=== PATIENT | male | born 1930 | race Caucasian/White ===

== ENCOUNTER 2016-10-07 08:55 | Emergency (ER) | payer OTHER, MEDICARE ==
--- NOTE | 2016-10-07 10:33 | DIAGNOSTIC IMAGING REPORT ---
PROCEDURE: XR CHEST 2 VIEW INDICATION: CHEST PAIN TECHNIQUE: PA and lateral views. COMPARISON: None. FINDINGS: Median sternotomy and CABG. Heart size and pulmonary vascularity are normal. Mild widening of the superior mediastinum which is stable and most consistent with normal vascular structures. Lungs are clear. Normal bony thorax. IMPRESSION: 1. No acute changes 2. CABG
--- NOTE | 2016-10-07 13:33 | ED CLINICAL REPORT ---
Clinical Report - Physicians/Mid Levels [facility] [address] [place] [address] 10/07/2016 8:57 Patient: ERICK MCMANUS Time Seen: 0901; initial patient contact. Arrived- By private vehicle. Historian- patient. HISTORY OF PRESENT ILLNESS Chief Complaint: CHEST DISCOMFORT. This started yesterday and is still present (no change). It was abrupt in onset and has been intermittent but is not gone now. It is described as pressure. No radiation. No nausea, vomiting, difficulty breathing or diaphoresis. (struggling with depression. has had a similar episode here in 2014. states that he had to go up on his antidepressant a few days ago. reports he is very sensitive to medications and were trying to avoid new meds. has extensive cardiac history. last stress test was > 2 years ago. last cardiac procedure was > 5 years ago. no leg swelling, coughing up blood, recent surgeries, or immobilizations. See's doctor Carlos for cardiology.). No additional chest pain. Similar symptoms previously: (a few times). Recent medical care: Not recently seen/assessed. REVIEW OF SYSTEMS All systems otherwise negative, except as recorded above. PAST HISTORY See nurses notes. Denies the following risk factors for DVT/PE - history of DVT and pulmonary embolism, recent surgery, recent [place] and congestive heart failure. Denies the following risk factors for DVT/PE - cancer, clotting disorder, estrogens, immobility and vena cava filter. SOCIAL HISTORY Former smoker. No alcohol use or drug use. No recent travel. Is a local resident. ADDITIONAL NOTES The nursing notes have been reviewed. PHYSICAL EXAM Vital Signs: 10/07/2016 08:58 BP: 149/76. HR: 72. RR: 14. O2 saturation: 96%. Temp: 97.5 F. Pain level now: 8/10. Hypertensive. Oxygen saturation normal. Appearance: Alert. Oriented X3. No acute distress. Eyes: Pupils equal, round and reactive to light. Eyes normal inspection. ENT: Ears normal. Nose normal. Pharynx normal. Neck: Normal inspection. Neck supple. No JVD. CVS: Normal heart rate and rhythm. Heart sounds normal. Pulses normal. No decreased pulses. Respiratory: No respiratory distress. Breath sounds normal. Chest nontender. No rales, rhonchi or wheezes. Abdomen: Soft and nontender. Bowel sounds normal. No mass. Back: Normal external inspection. Skin: Skin warm and dry. Normal skin color. No rash. Normal skin turgor. Extremities: Extremities exhibit normal ROM. No lower extremity edema. LABS, X-RAYS, AND EKG EKG: No acute ischemia. Rate: 75. Normal P waves. First-degree atrioventricular block (JEANNE = 204). Normal QRS complex. Poor R wave progression. Normal QT and QTc. Non-specific T wave inversion in lead V1 and V2. No ST elevation or depression. The study has been interpreted contemporaneously by me. The study has been independently viewed by me. The EKG appears to be a good tracing. Chest X-ray: (PROCEDURE: XR CHEST 2 VIEW INDICATION: CHEST PAIN TECHNIQUE: PA and lateral views. COMPARISON: None. FINDINGS: Median sternotomy and CABG. Heart size and pulmonary vascularity are normal. Mild widening of the superior mediastinum which is stable and most consistent with normal vascular structures. Lungs are clear. Normal bony thorax. IMPRESSION: 1. No acute changes 2. CABG). Views: PA and lateral. The X-rays were independently viewed by me and interpreted by the radiologist. The X-rays were discussed with the radiologist (via pacs). Laboratory Tests: CBC w Diff: (CATA: 10/07/2016 09:00) ( MsgRcvd 10/07/2016 09:15) Final results Test Result Flag Units (Reference) WHITE BLOOD COUNT 7.9 K/uL (4.5-11.5) RED BLOOD COUNT 5.04 M/uL (4.50-5.90) HEMOGLOBIN 16.2 gm/dL (13.5-17.5) HEMATOCRIT 47.9 % (41.0-53.0) MEAN CELL VOLUME 95 fL (80-100) MEAN CORPUSCULAR HGB 32 pg (26-34) MEAN CORPUSCULAR HGB CONC 34 g/dL (31-37) RED CELL DISTRIBUTION WIDTH 14.0 % (11.6-14.8) PLATELET COUNT 162 K/uL (150-400) NEUTROPHIL % 50.0 % (50-75) LYMPH % 39.9 % (25-40) MONO % 8.1 % (3-14) EOSINOPHIL % 1.4 % (0-4) BASOPHIL % 0.6 % (0-2) PT with INR: (CATA: 10/07/2016 09:00) ( [facility] 10/07/2016 09:55) Final results Test Result Flag Units (Reference) INR 1.0 (0.8-1.2) Low Intensity Therapy: INR 1.5-2.0 PT range 18.5-23.1Mod.Intensity Therapy: INR 2.0-3.0 PT range 23.1-31.5High Intensity Therapy: INR 2.5-3.5 PT range 27.4-35.5High Intensity Therapy 2: INR 3.0-4.0 PT range 31.5-39.3 D-DIMER QUANTITATIVE 0.44 ug/mLFEU (0.27-0.52) The primary value of this quantitative assay relates toits negative predictive value (i.e. exclusion) of pulmonaryembolism/deep vein thrombosis/DIC.Elevated levels of d-dimer may also occur with:, age, cancer, inflammation, liver disease,post-op, infection, hematoma, coronary disease, peripheralarteriopathy, bleeding disorders and thrombolytic treatment.Results should be correlated with other clinical andradiological data.Testing Methodology: Latex Immunoassay Troponin-I: (CATA: 10/07/2016 11:05) ( [facility] 10/07/2016 11:52) Final results Test Result Flag Units (Reference) TROPONIN I 0.06 ng/mL (0.00-1.5) TROPONIN REFERENCE RANGE:<0.1 NEGATIVE0.1-1.5 INDETERMINANT>1.5 POSITIVE BNP: (CATA: 10/07/2016 09:00) ( [facility] 10/07/2016 09:37) Final results Test Result Flag Units (Reference) B-TYPE NATRIURETIC PEPTIDE 77.9 pg/ml (5-100) CMP: (CATA: 10/07/2016 09:00) ( MsgRcvd 10/07/2016 09:29) Final results Test Result Flag Units (Reference) GLUCOSE 106 mg/dL (70-110) BUN 19 H mg/dL (7-18) CREATININE 1.4 H mg/dL (0.6-1.3) Estimated GFR 51.19 mL/min Estimated GFR- >60 mL/min Note: Persistent reduction over 3 months in eGFR<60 mL/min/1.73 m2 defines CKD. Patients with eGFR values>=60 mL/min/1.73 m2 may also have CKD if evidence ofpersistent proteinuria. Additional information may be foundat www.kidney.org. SODIUM 142 mmol/L (136-145) POTASSIUM 4.1 mmol/L (3.5-5.1) CHLORIDE 104 mmol/L (98-107) CARBON DIOXIDE 26 mmol/L (21-32) CALCIUM 8.6 mg/dL (8.5-10.1) TOTAL PROTEIN 7.9 g/dL (6.4-8.2) ALBUMIN 3.6 g/dL (3.3-5.0) BILIRUBIN, TOTAL 0.6 mg/dL (0.0-1.0) ALKALINE PHOSPHATASE 61 U/L (46-116) AST (SGOT) 33 U/L (15-37) ALT (SGPT) 38 U/L (12-78) TROPONIN I <0.05 ng/mL (0.00-1.5) TROPONIN REFERENCE RANGE:<0.1 NEGATIVE0.1-1.5 INDETERMINANT>1.5 POSITIVE . PROGRESS AND PROCEDURES Course of Care: The patient is a pleasant 86-year-old male reasoning for evaluation of chest discomfort. Patient has a extensive cardiac history. Recent stress test has been greater than 2 years ago. Patient will be evaluated with laboratory studies including chest x-ray and EKG. Patient is resting in bed in no acute distress. Patient appears nontoxic. Differential also includes acute myocardial infarction, pulmonary embolism, pneumonia, or depression given the patient's has this problem in the past before and had recently increased his medications recently. Patient is accompanied by his per patient request. There are agreeable to the treatment plan. because of the patient's chest pain, nitroglycerin was given. states that the patient has been really sensitive to the nitroglycerin in the past. Half a tablet of the sublingual nitroglycerin was given instead of a full dose of 0.4 mg. Patient was monitored. Patient had episode of bradycardia and hypotension. Patient was placed in Trendelenburg and given 500 cc bolus of fluid. Atropine has been ordered however patient's blood pressure and bradycardia normalize prior to administration of atropine. Patient had episode of nausea and vomiting during this episode. No other acute abnormalities noted. Patient has returned to baseline. Total episode lasted approximately 10-15 minutes. Nitroglycerin was placed on the patient's allergy list. Patient and were encouraged to inform future providers extreme caution with nitroglycerin in the future. the patient's workup was noted for the findings above. Discussed the laboratory results with cardiology. recommended patient follow-up as an outpatient and schedule a stress test for further cardiac evaluation. Patient has had resolution of his pain while here in the emergency department. Because of the patient is pain free with normal troponins 2, D-dimer normal. Do not feel the patient is having an acute myocardial infarction. 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 Prior to patient's departure from the emergency department his reevaluation is noted to be unremarkable. Do not feel patient has acute myocardial infarction, pulmonary embolism, or thoracic AA. I discussed with the patient is workup here in the emergency department including diagnosis, home care, follow-up, and return precautions. All questions have been answered. The patient expressed understanding of these instructions and was agreeable to them. Consult obtained from cardiology. Dr. Hartman. Disposition: Discharged. Condition: good. CLINICAL IMPRESSION Chest pain characterized as "discomfort" .12 lead EKG performed. (acute). 10/07/2016 12:00 BP: 108/64. HR: 59. RR: 19. O2 saturation: 96%. Temp: 97.8 F. Pain level now: 0/10. Adjustment disorder with depressed mood. Blood pressure normal. Oxygen saturation normal. INSTRUCTIONS Warnings: GENERAL WARNINGS: Return or contact your physician immediately if your condition worsens or changes unexpectedly, if not improving as expected, or if other problems arise. SPECIFICALLY, return if you develop chest, neck, jaw, shoulder, arm, or back pain, difficulty breathing, a fluttering sensation in your chest, lightheadedness, fainting, excessive fatigue, or sudden sweating. Your Current Medications: CONTINUE TAKING THE FOLLOWING MEDICATIONS: ASA : 81 mg daily. Flomax Oral. Glucoma eye drops*. Lisinopril Oral : 5 mg daily. Lovastatin Oral : 20mg daily. Multaq Oral : Tablet 400 mg, 1/2 tablet BID. Multivitamins Oral. Omeprazole Oral : 20 mg daily. Prozac Oral : 20 mg daily, has been off this for 2 months "I dodn't think I needed it any more". Vitamin D 1 tablet daily *. Follow-up: Return to the emergency department as needed. Follow up with your doctor in three days. Reason for referral: recheck today's concerns. Screening today revealed the patient's blood pressure to be in the normal range. The patient should follow up with a primary care provider for blood pressure management. Understanding of the discharge instructions verbalized by patient and family. Discharge instructions reviewed (spouse). Follow-up with: Sera Vasquez MD, Cardiology, , [facility] [id number] [place] [address] [address], [place], [address] Follow up. Reason for referral: recheck today's concerns of chest pain. the office will call you today or tomorrow. contact them if they do not get back to you. . Summary of care provided to patient via paper. (Electronically signed by Aaron Rascon Dr. 10/10/2016 5:01)
--- NOTE | 2016-10-07 13:34 | ED ORDER SUMMARY ---
..... Patient: ERICK MCMANUS OrderSheet [facility] VisitID: [id number] [address] [place] [address] 86y, M Registration Date/Time: 10/07/2016 ORDER SHEET Weight: 81.6 kg Allergies: Lasix, Plavix, Vicodin, Nitroglycerin GENERAL ORDERS: Chest 2V Urgent (09:02 10/07/2016 Luna Cannon) (Ack 9:05 KHoerner) (9:23 KHoerner) Electromechanic (Continuous) (CP) (09:02 10/07/2016 Luna Cannon) (9:07 Judy R.NMilena) CBC w Diff Urgent (09:03 10/07/2016 Luna Cannon) (9:05 KHoerner) CMP Urgent (09:03 10/07/2016 Luna Cannon) (9:05 KHoerner) UA-Culture if indicated Urgent (09:03 10/07/2016 Luna Cannon) (9:05 KHoerner) PT with INR Urgent (09:03 10/07/2016 Luna Cannon) (9:05 KHoerner) D-Dimer Urgent (09:03 10/07/2016 Luna Cannon) (9:05 KHoerner) Troponin-I Urgent (09:03 10/07/2016 Luna Cannon) (9:05 KHoerner) BNP Urgent (09:03 10/07/2016 Luna Cannon) (9:05 KHoerner) Pulse oximeter (09:03 10/07/2016 Luna Cannon) (9:07 Judy R.NMilena) EKG - ER Stat (11:13 10/07/2016 Glynn R.NMilena per protocol) (11:14 Garo) Troponin-I Urgent (11:14 10/07/2016 Glynn R.N. per protocol) (11:16 DANIELLEoerner) MEDICATION ORDERS: NitroGLYCERIN SL 0.2 mg (PO once now) (09:30 10/07/2016 Luna Cannon) (9:46 Ron R.N.) IV FLUIDS: IV Saline Lock (09:03 10/07/2016 Luna Cannon) (Ack 9:46 Ron R.N.) (14:20 Glynn R.N.) Zofran IV 4 mg (NOW) (09:37 10/07/2016 Luna Cannon) (9:41 LWamy R.N.) IV NS : initial bolus 500 mL (1000 mL/hr), then none - for X1 (NOW) (10:10/07/2016 Luna Cannon) (10:18 Glynn Peralta.N.) Atropine IV 0.25 mg (once now) (10:10/07/2016 Luna Cannon) (Hold 10:32 Glynn R.NMilena) ORDER SHEET NOTES: [Electronically signed by Tiffany Mccollum R.N. (14:10/07/2016)] [Electronically signed by Aaron Rascon Dr. (05:01 10/10/2016)] [Electronically locked/signed by Tiffany Mccollum R.N. (14:10/07/2016)]
--- NOTE | 2016-10-07 13:34 | ED NURSING NOTES ---
Clinical Report - Nurses [facility] [address] [place] [address] 10/07/2016 8:57 Patient: ERICK MCMANUS TRIAGE Triage time 0855 AM. Acuity: LEVEL 2. Chief Complaint: CHEST PAIN. Alert. No acute distress. --09:08 Tiffany Mccollum R.N. 08:58 10/07/16. BP: 149/76. HR: 72. RR: 14. O2 saturation: 96% on room air. Temp: 97.5 F (oral). Pain level now: 01/20. --09:08 Tiffany Mccollum R.N. Weight: 81.6 kg. Height/Length: 66 inches. BMI: 29. --08:58 Tiffany Mccollum R.N. Medications ASA 81 mg, daily. Lisinopril Oral 5 mg, daily. Lovastatin Oral 20mg, daily. Multaq Oral (Tablet 400 mg) 1/2 tablet, BID. Omeprazole Oral 20 mg, daily. Prozac Oral 20 mg, daily (has been off this for 2 months "I dodn't think I needed it any more" ). Vitamin D 1 tablet daily . --09:02 Tiffany Mccollum R.N. Flomax Oral. --09:06 Tiffany Mccollum R.N. Multivitamins Oral. --09:07 Tiffany Mccollum R.N. Glucoma eye drops. --09:07 Tiffany Mccollum R.N. The following entry was struck by Tiffany Mccollum R.N., 09:06 (10/07/16) Reason - other. <<STRICKEN ENTRY-- fish oil 1 tab daily . --09:02 Tiffany Mccollum R.N. --END STRIKE>>. Allergies Lasix.(itching, rash) Plavix. Definite Moderate(itching, rash) Vicodin. --09:02 Tiffany Mccollum R.N. Nitroglycerin. Definite Severe --10:44 Tiffany Mccollum R.N. Medication/allergy information source: the patient. --09:08 Tiffany Mccollum R.N. History Arrived by private vehicle. Historian: patient. Accompanied by family. Primary physician (Dr. Duffy- Michell perez). ( Pt states that yesterday evening experienced "chest discomfort" called the doctors office and was told to come to the ED this morning since the pain "discomfort and heaviness continues" Here for evaluation). This started today. He has had difficulty breathing. No sweating episodes, nausea, vomiting, fever or cough. 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 PAST MEDICAL HX: Immunizations: up-to-date. SOCIAL HX: Former smoker, end date 1966. No alcohol use or drug use. No infectious disease exposure. ABUSE ASSESSMENT: No report of abuse. SELF HARM ASSESSMENT: A self harm assessment was performed. The patient answered "no" to the question "Do you have thoughts of harming or killing yourself?" and "Have you recently had thoughts about harming or killing others?". FALL RISK ASSESSMENT: Fall risk assessment completed. No fall risk identified. NUTRITIONAL RISK ASSESSMENT: The nutritional risk assessment revealed no deficiencies. FUNCTIONAL ASSESSMENT: Functional assessment: no impairments noted. LEARNING NEEDS ASSESSMENT: The learning needs assessment revealed no barriers. SKIN INTEGRITY ASSESSMENT: Skin integrity risk assessment completed. No skin integrity risk identified. --09:08 Tiffany Mccollum R.N. Primary physician (Dr. Beltran- [employer]). --09:10 Tiffany Mccollum R.N. PROBLEMS: Arrhythmia. Anxiety Reaction. Chest Pain. Gastroesophageal Reflux. Hyperlipidemia. Hypertension. Immunizations. Prostate Cancer. Heart Disease. Benign Prostatic Hypertrophy. UTI - Urinary Tract Infection. --09:02 Tiffany Mccollum R.N. ADDITIONAL SURGERIES: Appendectomy. Colostomy. Coronary Artery Bypass Graft. Hernia Repair. Stent. --09:02 Tiffany Mccollum R.N. Interventions ID band on patient. --09:08 Tiffany Mccollum R.N. PHYSICAL ASSESSMENT To room via stretcher. GENERAL / NEURO / PSYCH: Alert. Oriented X 4. Appears in no acute distress. HEENT: Mucous membranes are pink. RESPIRATORY: Respirations not labored. Chest nontender. Breath sounds within normal limits. CVS: Normal sinus rhythm noted. Pulses within normal limits. Capillary refill less than 2 seconds. GI / : Abdomen soft and nontender. EXTREMITIES: No lower extremity edema. SKIN: Skin is warm and dry. Normal skin turgor. --09:08 Tiffany Mccollum R.N. NURSING PROGRESS NOTES The initial plan of care for this patient has been created This plan of care was discussed with the patient. school lunch monitor, pulse oximeter and NIBP monitor placed on patient. EKG time: (0905 AM). EKG was performed by a tech and shown to the ED physician. Patient ID band checked for patient name and birthdate: patient confirmed. Blood samples drawn from the left forearm by nurse per protocol ; labeled in presence of the patient and sent to lab: rainbow set. Patient gowned. Reassurance given. Two patient identifiers checked. Call light placed in reach. Side rails up. Bed placed in lowest position. Brakes of bed on. --09:09 Tiffany Mccollum R.N. 09:16 10/07/2016 Site #1 started via IV in the left forearm with an 20g angiocath, with aseptic technique and good blood return; one attempt. Blood drawn: rainbow set. Labeled in the presence of the patient and sent to the lab. Saline lock flushed with 10 mL saline. --09:41 Beth Díaz R.N. 09:41 10/07/2016 Zofran (Ondansetron HCl) IVP 4 mg given over 1 minute(s) via site #1. Allergies verified and confirmed 5 rights. IV patency established. IV site checked: no pain, redness, or swelling. IV flushed thoroughly pre- and post-medication administration. --09:41 Beth Díaz R.N. 09:46 10/07/2016 Nitroglycerin SL Tablets 0.2 mg given. Allergies verified and confirmed 5 rights. --09:46 Beth Díaz R.N. 09:47 10/07/16. BP: 107/64. HR: 69. RR: 14. O2 saturation: 94%. --09:47 Beth Díaz R.N. EKG time: (9:06 AM). EKG was performed by a tech and shown to the ED physician. --09:58 Rea Lua 10:18 10/07/2016 Started bag #1 500 mL IV Fluids IV NS (Saline); at 500 mL/hr over 1 hour(s) via site #1 via IV pump. Allergies verified and confirmed 5 rights. IV patency established. IV site checked: no pain, redness, or swelling. IV flushed thoroughly pre- and post-medication administration. --10:18 Tiffany Mccollum R.N. late entry - 09:30 AM. Cardiac rhythm: normal sinus rhythm. Oxygen administered by nasal cannula at 2 liters. school lunch monitor, pulse oximeter and NIBP monitor placed on patient. Reassurance given. CVS: The patient reports chest pain. --10:21 Tiffany Mccollum R.N. 09:30 10/07/16. BP: 107/64 (regular adult cuff) taken on the right arm, via an automated monitor, while lying. HR: 67. RR: 15. O2 saturation: 98% on room air. Pain level now: 10/20. --10:21 Tiffany Mccollum R.N. Cardiac rhythm: normal sinus rhythm. ( Monitored traced BP 60's pt pale, vomiting, MD Rodriguez at bedside and aware post Nitro administration. Bolus of NS given, atropine at bedside, now HR 63 BP 93/61. Will monitor). --10: Tiffany Mccollum R.N. 10:00 10/07/16. BP: 60/38 (regular adult cuff) taken on the right arm, via an automated monitor, while lying. HR: 42. RR: 12 (regular). O2 saturation: 97% on nasal cannula at 2 liters/minute. Pain level now: 09/20. --10:27 Tiffany Mccollum R.N. Cardiac rhythm: normal sinus rhythm. The patient is calm. ( Adverse reaction to Nitro noted on notes, Pt vomited x2, now "feeling better" BP at 97/56). --10:29 Tiffany Mccollum R.N. 10:27 10/07/16. BP: 93/61 taken on the left arm, via an automated monitor, while lying. HR: 61. RR: 14. O2 saturation: 96% on nasal cannula at 2 liters/minute. Pain level now: 09/20. --10:29 Tiffany Mccollum R.N. Cardiac rhythm: sinus bradycardia. Oxygen administered by nasal cannula at 2 liters. Monitoring of patient in place. Reassurance given. Overall patient status is improved- he states feels better. ( Pt still complaining of "chest discomfort" labs wnl, will repeat troponin, family at bedside and aware. Will monitor). HEENT: Denies headache. RESPIRATORY: Denies difficulty breathing. GI / : Denies nausea. Call light placed in reach. Side rails up x 1. Bed placed in lowest position. --10:31 Tiffany Mccollum R.N. 10:29 10/07/16. BP: 97/56 (regular adult cuff) taken on the left arm, via an automated monitor, while lying. HR: 60. RR: 12. O2 saturation: 95% on nasal cannula at 2 liters/minute. Pain level now: 09/20. --10:31 Tiffany Mccollum R.N. Cardiac rhythm: sinus bradycardia. Oxygen discontinued due to patient improvement. school lunch monitor, pulse oximeter and NIBP monitor placed on patient. Reassurance given. The patient is calm and resting quietly. GENERAL / NEURO / PSYCH: Denies anxiety. HEENT: Denies headache. RESPIRATORY: Denies difficulty breathing. CVS: Denies chest pain. Normal sinus rhythm noted. GI / : Denies nausea. --12:24 Tiffany Mccollum R.N. 12:00 10/07/16. BP: 108/64. HR: 59. RR: 19. O2 saturation: 96%. Temp: 97.8 F. Pain level now: . --12:24 Tiffany Mccollum R.N. DISPOSITION / DISCHARGE 10:15 10/07/2016 Nitroglycerin SL Response. Adverse reactions reported and observed including diaphoresis. (Pt BP downt o 60's and Bradycardia at 41. Symptomatic). --14:14 Tiffany Mccollum R.N. 11:00 10/07/2016 IV Fluids IV NS Response: no adverse reaction symptoms have improved the patient feels better. --14:13 Tiffany Mccollum R.N. 13:45 10/07/16. BP: 120/68. HR: 65. RR: 14. O2 saturation: 100% on room air. Temp: 98.3 F (oral). Pain level now: 0/10. --14:19 Tiffany Mccollum R.N. Cardiac rhythm: normal sinus rhythm. Departure time: 1350 PM. Condition at departure: improved and stable. The goals identified in the patient's plan of care were met. No learning barriers present. Discharge instructions provided and reviewed with the patient. Patient verbalized understanding. Written instructions provided in Sammar[place]. 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 No warning instructions, medication instructions, treatment instructions or referrals given to the patient. The patient was discharged by the physician. He was discharged home and accompanied by spouse. He left the Emergency Department ambulatory and via private vehicle. Spouse driving. FALL RISK ASSESSMENT: Fall risk assessment completed. No fall risk identified. --14:19 Tiffany Mccollum R.N. 11:10 10/07/2016 IV Fluids IV NS Discontinued: bag #1 infused. Total amount infused: 500 mL. IV patency established. IV site checked: no pain, redness, or swelling. IV flushed thoroughly. --14:20 Tiffany Mccollum R.N. 13:45 10/07/2016 Site #1 removed upon discharge. Catheter intact. Manual pressure, pressure dressing, bandaid and bandage applied. --14:21 Tiffany Mccollum R.N. Locked/Released at 10/07/2016 14:21 by Tiffany Mccollum R.N.
--- NOTE | 2016-10-07 13:34 | ED ORDER SUMMARY ---
..... Patient: ERICK MCMANUS OrderSheet [facility] VisitID: [id number] [address] [place] [address] 86y, M Registration Date/Time: 10/07/2016 ORDER SHEET Weight: 81.6 kg Allergies: Lasix, Plavix, Vicodin, Nitroglycerin GENERAL ORDERS: Chest 2V Urgent (09:02 10/07/2016 Luna Cannon) (Ack 9:05 KHoerner) (9:23 KHoerner) Card Player (Continuous) (CP) (09:02 10/07/2016 Luna Cannon) (9:07 Judy R.NMilena) CBC w Diff Urgent (09:03 10/07/2016 Luna Cannon) (9:05 KHoerner) CMP Urgent (09:03 10/07/2016 Luna Cannon) (9:05 KHoerner) UA-Culture if indicated Urgent (09:03 10/07/2016 Luna Cannon) (9:05 KHoerner) PT with INR Urgent (09:03 10/07/2016 Luna Cannon) (9:05 KHoerner) D-Dimer Urgent (09:03 10/07/2016 Luna Cannon) (9:05 KHoerner) Troponin-I Urgent (09:03 10/07/2016 Luna Cannon) (9:05 KHoerner) BNP Urgent (09:03 10/07/2016 Luna Cannon) (9:05 KHoerner) Pulse oximeter (09:03 10/07/2016 Luna Cannon) (9:07 Judy R.NMilena) EKG - ER Stat (11:13 10/07/2016 Glynn R.NMilena per protocol) (11:14 Garo) Troponin-I Urgent (11:14 10/07/2016 Glynn R.N. per protocol) (11:16 DANIELLEoerner) MEDICATION ORDERS: NitroGLYCERIN SL 0.2 mg (PO once now) (09:30 10/07/2016 Luna Cannon) (9:46 Ron R.N.) IV FLUIDS: IV Saline Lock (09:03 10/07/2016 Luna Cannon) (Ack 9:46 Ron R.N.) (14:20 Glynn R.N.) Zofran IV 4 mg (NOW) (09:37 10/07/2016 Luna Cannon) (9:41 LWamy R.N.) IV NS : initial bolus 500 mL (1000 mL/hr), then none - for X1 (NOW) (10:10/07/2016 Luna Cannon) (10:18 Glynn Peralta.N.) Atropine IV 0.25 mg (once now) (10:10/07/2016 Luna Cannon) (Hold 10:32 Glynn R.NMilena) ORDER SHEET NOTES: [Electronically signed by Tiffany Mccollum R.N. (14:10/07/2016)] [Electronically signed by Aaron Rascon Dr. (05:01 10/10/2016)] [Electronically locked/signed by Tiffany Mccollum R.N. (14:10/07/2016)]
--- NOTE | 2016-10-10 05:01 | ED MAR SUMMARY ---
..... Medication Administration Record [facility] [address] [place] [address] Patient: ERICK MCMANUS Visit ID: [id number] 86y, M Weight: 81.6 kg Height/Length: 66 in BMI: 29 ALLERGIES: Lasix, Plavix, Vicodin, Nitroglycerin Given 09:41 10/07/2016 Beth Díaz R.N. Medication Administered: ZOFRAN [IVP] (ONDANSETRON HCL), Dose: 4 mg IVP over 1 minute(s), Site: #1 left forearm. Medication Ordered: Zofran IV 4 mg (NOW). Given 09:46 10/07/2016 Beth Díaz R.N. Medication Administered: NITROGLYCERIN [SL], Dose: 0.2 mg Tablets SL. Medication Ordered: NitroGLYCERIN SL 0.2 mg (PO once now). Start 10:18 10/07/2016 Tiffany Mccollum RMilenaNMilena, Stop 11:10 10/07/2016 Tiffany Mccollum R.N. Medication Administered: IV NS (SALINE), Dose: IV Fluids over 1 hour(s), Rate: 500 mL/hr, Dispensed: 500 mL bag, Site: #1 left forearm. Medication Ordered: IV NS : initial bolus 500 mL (1000 mL/hr), then none - for X1 (NOW).
--- NOTE | 2016-10-10 05:01 | ED MAR SUMMARY ---
..... Medication Administration Record [facility] [address] [place] [address] Patient: ERICK MCMANUS Visit ID: [id number] 86y, M Weight: 81.6 kg Height/Length: 66 in BMI: 29 ALLERGIES: Lasix, Plavix, Vicodin, Nitroglycerin Given 09:41 10/07/2016 Beth Díaz R.N. Medication Administered: ZOFRAN [IVP] (ONDANSETRON HCL), Dose: 4 mg IVP over 1 minute(s), Site: #1 left forearm. Medication Ordered: Zofran IV 4 mg (NOW). Given 09:46 10/07/2016 Beth Díaz R.N. Medication Administered: NITROGLYCERIN [SL], Dose: 0.2 mg Tablets SL. Medication Ordered: NitroGLYCERIN SL 0.2 mg (PO once now). Start 10:18 10/07/2016 Tiffany Mccollum RMilenaNMilena, Stop 11:10 10/07/2016 Tiffany Mccollum R.N. Medication Administered: IV NS (SALINE), Dose: IV Fluids over 1 hour(s), Rate: 500 mL/hr, Dispensed: 500 mL bag, Site: #1 left forearm. Medication Ordered: IV NS : initial bolus 500 mL (1000 mL/hr), then none - for X1 (NOW).
--- NOTE | 2016-10-10 05:01 | ED DISCHARGE INSTRUCTIONS ---
Patient: ERICK MCMANUS General Instructions [facility] VisitID: [id number] [address] [place] [address] 86y, M Registration Date/Time: 10/07/2016 Chest pain characterized as "discomfort" .12 lead EKG performed. (acute). 10/07/2016 12:00 BP: 108/64. HR: 59. RR: 19. O2 saturation: 96%. Temp: 97.8 F. Pain level now: 0/10. Adjustment disorder with depressed mood. Blood pressure normal. Oxygen saturation normal. INSTRUCTIONS Warnings: GENERAL WARNINGS: Return or contact your physician immediately if your condition worsens or changes unexpectedly, if not improving as expected, or if other problems arise. SPECIFICALLY, return if you develop chest, neck, jaw, shoulder, arm, or back pain, difficulty breathing, a fluttering sensation in your chest, lightheadedness, fainting, excessive fatigue, or sudden sweating. Your Current Medications: CONTINUE TAKING THE FOLLOWING MEDICATIONS: ASA : 81 mg daily. Flomax Oral. Glucoma eye drops*. Lisinopril Oral : 5 mg daily. Lovastatin Oral : 20mg daily. Multaq Oral : Tablet 400 mg, 1/2 tablet BID. Multivitamins Oral. Omeprazole Oral : 20 mg daily. Prozac Oral : 20 mg daily, has been off this for 2 months "I dodn't think I needed it any more". Vitamin D 1 tablet daily *. Follow-up: Return to the emergency department as needed. Follow up with your doctor in three days. Reason for referral: recheck today's concerns. Screening today revealed the patient's blood pressure to be in the normal range. The patient should follow up with a primary care provider for blood pressure management. Understanding of the discharge instructions verbalized by patient and family. Discharge instructions reviewed (spouse). Follow-up with: Sera Vasquez MD, Cardiology, , [facility] [address], [place], [address] Follow up. Reason for referral: recheck today's concerns of chest pain. the office will call you today or tomorrow. contact them if they do not get back to you. . Summary of care provided to patient via paper. ADDITIONAL INFORMATION Chest Pain, Uncertain Cause Chest pain can happen for a number of reasons. Sometimes the cause can not be determined. If yourcondition does not seem serious, and your pain does not appear to be coming from your heart, your doctor may recommend watching it closely. Sometimes the signs of a serious problem take more time to appear. Therefore, watch for the warning signs listed below. Home care After your visit, follow these recommendations: Rest today and avoid strenuous activity. Take any prescribed medicine as directed. Follow-up care Follow up with your doctor or this facility as instructed or if you do not start to feel better within 24 hours. Call 911 Get immediate medical attention if any of the following occur: A change in the type of pain: if it feels different, becomes more severe, lasts longer, or begins to spread into your shoulder, arm, neck, jaw or back Shortness of breath or increased pain with breathing Weakness, dizziness, or fainting Rapid heart beat Get prompt medical attention Call your doctor right away if any of the following occur: Cough with dark colored sputum (phlegm) or blood Fever of 100.4F(38C) or higher, or as directed by your health care provider Swelling, pain or redness in one leg Adjustment Disorder An adjustment disorder is a condition that results from having a hard time coping with the normal stresses of life. You may feel you have too much to do and cant get it all done. These feelings may be triggered by divorce, job loss, someone you know dying, or by a positive event like getting a new job or getting . These feelings may interfere with your relationships at home and at work. With this condition, it is common to feel sad, guilty, hopeless and restless. These feelings may continue for weeks or months. It can be helpful to identify what is causing the additional stress and takes steps to get extra support. If new stressful events do not occur, it is likely that you will start feeling better within six months. Home Care: If you have been given a prescription for medicine, take it as directed. It helps to talk about your feelings and thoughts with family or friends that understand and support you. Follow Up with your doctor or therapist as advised by our staff. Let them know if this condition lasts more than six months without sign of improvement. For more information, contact the National [place] [employer] Mental Illness at 471-258-5474 or visit www.héctor.org. Get Prompt Medical Attention if any of the following occur: Worsening depression or anxiety Feeling out of control Thoughts of harming yourself or another Being unable to care for yourself You have been given the following additional information: Chest Pain, Uncertain Cause Adjustment Disorder (Electronically signed by Aaron Rascon Dr. 10/10/2016 5:01)
--- NOTE | 2016-10-10 05:01 | ED MED RECONCILIATION SUMMARY ---
Patient: ERICK MCMANUS Medication Reconciliation Report [facility] VisitID: [id number] [address] [place] [address] 86y, M Registration Date/Time: 10/07/2016 Weight: 81.6 kg Height/Length: 66 in. BMI: 29.0 ALLERGIES: Lasix, Nitroglycerin, Plavix, Vicodin The patient's Home Medications are listed below: CONTINUE TAKING THE FOLLOWING MEDICATIONS: ASA 81 mg, daily Flomax Oral Glucoma eye drops Lisinopril Oral 5 mg, daily Lovastatin Oral 20mg, daily Multaq Oral (400 mg) 1/2 tablet, BID Multivitamins Oral Omeprazole Oral 20 mg, daily Prozac Oral 20 mg, daily, has been off this for 2 months "I dodn't think I needed it any more" Vitamin D 1 tablet daily The source(s) of the original Home Medication information: patient The following Medications were given to the patient in the Emergency Department: Zofran [IVP] IVP 4 mg, administered: 10/07/2016 9:41:00 AM Nitroglycerin [SL] SL 0.2 mg, administered: 10/07/2016 9:46:00 AM IV NS IV Fluids bolus 0, then 500 mL/hr, administered: 10/07/2016 10:18:00 AM The following Medications were prescribed to the patient: None.
--- NOTE | 2016-10-10 05:01 | ED DISCHARGE INSTRUCTIONS ---
Patient: ERICK MCMANUS General Instructions [facility] VisitID: [id number] [address] [place] [address] 86y, M Registration Date/Time: 10/07/2016 Chest pain characterized as "discomfort" .12 lead EKG performed. (acute). 10/07/2016 12:00 BP: 108/64. HR: 59. RR: 19. O2 saturation: 96%. Temp: 97.8 F. Pain level now: 0/10. Adjustment disorder with depressed mood. Blood pressure normal. Oxygen saturation normal. INSTRUCTIONS Warnings: GENERAL WARNINGS: Return or contact your physician immediately if your condition worsens or changes unexpectedly, if not improving as expected, or if other problems arise. SPECIFICALLY, return if you develop chest, neck, jaw, shoulder, arm, or back pain, difficulty breathing, a fluttering sensation in your chest, lightheadedness, fainting, excessive fatigue, or sudden sweating. Your Current Medications: CONTINUE TAKING THE FOLLOWING MEDICATIONS: ASA : 81 mg daily. Flomax Oral. Glucoma eye drops*. Lisinopril Oral : 5 mg daily. Lovastatin Oral : 20mg daily. Multaq Oral : Tablet 400 mg, 1/2 tablet BID. Multivitamins Oral. Omeprazole Oral : 20 mg daily. Prozac Oral : 20 mg daily, has been off this for 2 months "I dodn't think I needed it any more". Vitamin D 1 tablet daily *. Follow-up: Return to the emergency department as needed. Follow up with your doctor in three days. Reason for referral: recheck today's concerns. Screening today revealed the patient's blood pressure to be in the normal range. The patient should follow up with a primary care provider for blood pressure management. Understanding of the discharge instructions verbalized by patient and family. Discharge instructions reviewed (spouse). Follow-up with: Sera Vasquez MD, Cardiology, , [facility], [address], [place], [address] Follow up. Reason for referral: recheck today's concerns of chest pain. the office will call you today or tomorrow. contact them if they do not get back to you. . Summary of care provided to patient via paper. ADDITIONAL INFORMATION Chest Pain, Uncertain Cause Chest pain can happen for a number of reasons. Sometimes the cause can not be determined. If yourcondition does not seem serious, and your pain does not appear to be coming from your heart, your doctor may recommend watching it closely. Sometimes the signs of a serious problem take more time to appear. Therefore, watch for the warning signs listed below. Home care After your visit, follow these recommendations: Rest today and avoid strenuous activity. Take any prescribed medicine as directed. Follow-up care Follow up with your doctor or this facility as instructed or if you do not start to feel better within 24 hours. Call 911 Get immediate medical attention if any of the following occur: A change in the type of pain: if it feels different, becomes more severe, lasts longer, or begins to spread into your shoulder, arm, neck, jaw or back Shortness of breath or increased pain with breathing Weakness, dizziness, or fainting Rapid heart beat Get prompt medical attention Call your doctor right away if any of the following occur: Cough with dark colored sputum (phlegm) or blood Fever of 100.4F(38C) or higher, or as directed by your health care provider Swelling, pain or redness in one leg Adjustment Disorder An adjustment disorder is a condition that results from having a hard time coping with the normal stresses of life. You may feel you have too much to do and cant get it all done. These feelings may be triggered by divorce, job loss, someone you know dying, or by a positive event like getting a new job or getting . These feelings may interfere with your relationships at home and at work. With this condition, it is common to feel sad, guilty, hopeless and restless. These feelings may continue for weeks or months. It can be helpful to identify what is causing the additional stress and takes steps to get extra support. If new stressful events do not occur, it is likely that you will start feeling better within six months. Home Care: If you have been given a prescription for medicine, take it as directed. It helps to talk about your feelings and thoughts with family or friends that understand and support you. Follow Up with your doctor or therapist as advised by our staff. Let them know if this condition lasts more than six months without sign of improvement. For more information, contact the National [place] on Mental Illness at 577-444-1016 or visit www.héctor.org. Get Prompt Medical Attention if any of the following occur: Worsening depression or anxiety Feeling out of control Thoughts of harming yourself or another Being unable to care for yourself You have been given the following additional information: Chest Pain, Uncertain Cause Adjustment Disorder (Electronically signed by Aaron Rascon Dr. 10/10/2016 5:01)
--- NOTE | 2016-10-10 05:01 | ED MED RECONCILIATION SUMMARY ---
Patient: ERICK MCMANUS Medication Reconciliation Report [facility] VisitID: [id number] [address] [place] [address] 86y, M Registration Date/Time: 10/07/2016 Weight: 81.6 kg Height/Length: 66 in. BMI: 29.0 ALLERGIES: Lasix, Nitroglycerin, Plavix, Vicodin The patient's Home Medications are listed below: CONTINUE TAKING THE FOLLOWING MEDICATIONS: ASA 81 mg, daily Flomax Oral Glucoma eye drops Lisinopril Oral 5 mg, daily Lovastatin Oral 20mg, daily Multaq Oral (400 mg) 1/2 tablet, BID Multivitamins Oral Omeprazole Oral 20 mg, daily Prozac Oral 20 mg, daily, has been off this for 2 months "I dodn't think I needed it any more" Vitamin D 1 tablet daily The source(s) of the original Home Medication information: patient The following Medications were given to the patient in the Emergency Department: Zofran [IVP] IVP 4 mg, administered: 10/07/2016 9:41:00 AM Nitroglycerin [SL] SL 0.2 mg, administered: 10/07/2016 9:46:00 AM IV NS IV Fluids bolus 0, then 500 mL/hr, administered: 10/07/2016 10:18:00 AM The following Medications were prescribed to the patient: None.
== END 2016-10-07 13:50 | disposition home or self-care (01) ==
LOC: ED SRH 08:55
DX: R07.89 Other chest pain (principal); F43.21 Adjustment disorder with depressed mood; I10 Essential (primary) hypertension; Z79.899 Other long term (current) drug therapy; Z79.82 Long term (current) use of aspirin; Z87.891 Personal history of nicotine dependence; Z88.8 Allergy status to other drugs, medicaments and biological substances; Z88.5 Allergy status to narcotic agent
CPT/HCPCS: 90074; 90100; 90616; 91320; 91556; 94060; 95059

== ENCOUNTER 2016-10-19 12:00 | Outpatient (CLI) | payer OTHER, MEDICARE ==
--- NOTE | 2016-10-21 14:14 | DIAGNOSTIC IMAGING REPORT ---
PROCEDURE: NM CARDIAC STRESS TEST Referring physician: Pepe Hartman MD Primary manufacturing test engineer: Matthew Mcbride MD Procedure performed Single-day sestamibi INDICATION: CAD;CHEST PAIN Lexiscan portion: Please see separate dictation. TECHNIQUE: Single-day sestamibi interpretation: 10 mCi of Technetium 99m labeled Sestamibi was injected at rest with SPECT tomography performed. Sometime later the patient underwent Lexiscan stress with 27 mCi Technetium 99m labeled Sestamibi injected 20 seconds after the injection of Lexiscan with SPECT tomography performed. Rest and stress images were then compared. COMPARISON: None. FINDINGS: There is a large area of moderately reduced review tracer uptake involving the entire anterior and anterolateral hoffman which normalizes on the resting images consistent with ischemia. LV was normal in size with left ventricular end- diastolic volume is 59 mL left ventricular end-systolic volume of 30 mL and mildly reduced ejection fraction of 49%. Summed stress score is 15 summed rest score is 11 summed difference score is 3. TID 1.1. IMPRESSION: 1. Abnormal myocardial perfusion with large area of moderate anterior wall and anterolateral wall ischemia. 2. Normal left ventricular size with mildly reduced ejection fraction of 49%. 3. These results suggest a high risk profile for major coronary ischemic events. Findings discussed with primary manufacturing test engineer.
--- NOTE | 2016-10-21 14:14 | DIAGNOSTIC IMAGING REPORT ---
PROCEDURE: NM CARDIAC STRESS TEST Referring physician: Pepe Hartman MD Primary hydroelectric station operator chief: Matthew Mcbride MD Procedure performed Single-day sestamibi INDICATION: CAD;CHEST PAIN Lexiscan portion: Please see separate dictation. TECHNIQUE: Single-day sestamibi interpretation: 10 mCi of Technetium 99m labeled Sestamibi was injected at rest with SPECT tomography performed. Sometime later the patient underwent Lexiscan stress with 27 mCi Technetium 99m labeled Sestamibi injected 20 seconds after the injection of Lexiscan with SPECT tomography performed. Rest and stress images were then compared. COMPARISON: None. FINDINGS: There is a large area of moderately reduced review tracer uptake involving the entire anterior and anterolateral hoffman which normalizes on the resting images consistent with ischemia. LV was normal in size with left ventricular end- diastolic volume is 59 mL left ventricular end-systolic volume of 30 mL and mildly reduced ejection fraction of 49%. Summed stress score is 15 summed rest score is 11 summed difference score is 3. TID 1.1. IMPRESSION: 1. Abnormal myocardial perfusion with large area of moderate anterior wall and anterolateral wall ischemia. 2. Normal left ventricular size with mildly reduced ejection fraction of 49%. 3. These results suggest a high risk profile for major coronary ischemic events. Findings discussed with primary hydroelectric station operator chief.
== END 2016-10-19 23:00 ==
LOC: NM SRH 12:00
PROC: 4A02XM4 Measurement of Cardiac Total Activity, External Approach (ICD-10-PCS; principal; 2016-10-19)
PROC: 3E073KZ Introduction of Other Diagnostic Substance into Coronary Artery, Percutaneous Approach (ICD-10-PCS; 2016-10-19)
DX: I25.10 Atherosclerotic heart disease of native coronary artery without angina pectoris (principal); R07.9 Chest pain, unspecified